=== PATIENT | male | born 1940 | race Caucasian/White ===

== ENCOUNTER 2016-07-24 14:46 | Outpatient (CLI) | payer MEDICARE, OTHER ==
[2016-05-29 12:44] VITALS: BP 155/78
--- NOTE | 2016-07-24 18:01 | Diagnostic Imaging Report ---
EARL GAN [facility] [id number] [facility] [address] [address] Report Submission Date: Jul 24, 2016 5:12:49 PM TECHNICAL PUBLICATIONS WRITER Patient Study Name: AKUA WEBB Date: Jul 24, 2016 3:24:18 PM TECHNICAL PUBLICATIONS WRITER Modality Type: CR Gender: M Description: CHEST : 36 Institution: [facility] Physician: EARL GAN Right ribs History: Right rib pain for 1 month Findings: Right shoulder arthropathy and proximal right humerus suture anchors are observed. Right ribs are unremarkable without displaced fracture or focal rib lesion. Thoracolumbar junction compression deformities and vertebroplasties are observed. A left renal stone may be present. L4/L5 fusion and posterior decompression are noted. Impression: 1. No evidence of displaced right rib fracture. 2. Possible left renal stone. 3. Multifocal postoperative changes. Electronically signed on Jul 24, 2016 5:12:49 PM TECHNICAL PUBLICATIONS WRITER by: Patricio ABRAHAM
== END 2016-07-24 14:47 ==
LOC: RAD 14:46
PROVIDERS: ATTEND Family Medicine
DX: R07.81 Pleurodynia (principal)
CPT/HCPCS: 71100

== ENCOUNTER 2016-08-15 08:07 | Outpatient (CLI) | payer MEDICARE, OTHER ==
[2016-05-29 12:44] VITALS: BP 155/78
[2016-08-15 08:59] LABS: eGFR (African) > 60; eGFR (Non-African) 52
== END 2016-08-15 08:10 ==
LOC: LAB 08:07
PROVIDERS: ATTEND Family Medicine
DX: E78.2 Mixed hyperlipidemia (principal)
CPT/HCPCS: 36415; 80053; 80061

== ENCOUNTER 2016-09-02 10:43 | Outpatient (CLI) | payer MEDICARE, OTHER ==
[2016-05-29 12:44] VITALS: BP 155/78
== END 2016-09-02 10:44 ==
LOC: CARD 10:43
PROVIDERS: ATTEND Internal Medicine Cardiovascular Disease
DX: I48.0 Paroxysmal atrial fibrillation (principal); I25.10 Atherosclerotic heart disease of native coronary artery without angina pectoris; I35.0 Nonrheumatic aortic (valve) stenosis; I10 Essential (primary) hypertension; E78.5 Hyperlipidemia, unspecified
CPT/HCPCS: G0463

== ENCOUNTER 2016-10-29 07:33 | Outpatient (CLI) | payer MEDICARE, OTHER ==
[2016-05-29 12:44] VITALS: BP 155/78
== END 2016-10-29 07:35 ==
LOC: LAB 07:33
PROVIDERS: ATTEND Family Medicine
DX: R73.9 Hyperglycemia, unspecified (principal)
CPT/HCPCS: 36415; 83036

== ENCOUNTER 2018-03-02 11:45 | Outpatient (CLI) | payer MEDICARE, OTHER ==
[2016-05-29 12:44] VITALS: BP 155/78
== END 2018-03-02 11:46 ==
LOC: CARD 11:45
PROVIDERS: ATTEND Internal Medicine Cardiovascular Disease
DX: I48.91 Unspecified atrial fibrillation (principal); I25.10 Atherosclerotic heart disease of native coronary artery without angina pectoris; I35.0 Nonrheumatic aortic (valve) stenosis; I10 Essential (primary) hypertension; E78.5 Hyperlipidemia, unspecified; G47.30 Sleep apnea, unspecified
CPT/HCPCS: G0463

== ENCOUNTER 2019-03-21 15:10 | Observation (INO) | payer MEDICARE, OTHER ==
[2016-05-29 12:44] VITALS: BP 155/78
[2019-03-21] MEDS ORDERED: ONDANSETRON HCL/PF 4 MG/ 2ML VIAL ONE (16:30)
[2019-03-21] MEDS ORDERED: NORMAL SALINE 1,000 ML IV.SOLN IV ONE (16:30)
[2019-03-31 08:31] LABS: BASOPHILS % 0.4 % (0.0-1.5); NEUTROPHILS # 9.8 # k/uL (1.4-7.7); eGFR (Non-African) 33
[2019-03-31 09:28] LABS: BASOPHILS % 0.4 % (0.0-1.5); NEUTROPHILS # 5.5 # k/uL (1.4-7.7); eGFR (Non-African) 47
[2019-03-31 10:30] LABS: BASOPHILS % 0.5 % (0.0-1.5); NEUTROPHILS # 4.1 # k/uL (1.4-7.7)
[2019-03-31 10:31] LABS: eGFR (Non-African) 55
== END 2019-03-23 10:15 | disposition home or self-care (01) ==
LOC: ED 15:10 → SOUTH 20:16
PROVIDERS: ADMIT Family Medicine; ATTEND Family Medicine
DX: E86.0 Dehydration (principal); N17.9 Acute kidney failure, unspecified; R19.7 Diarrhea, unspecified
CPT/HCPCS: 80053; 83880; 85025; 87045; 87046; 87177; 87209; 87427; 99218; 99282; 99283; G0378; J2405; J7030; S1016

== ENCOUNTER 2019-03-28 13:52 | Outpatient (CLI) | payer MEDICARE, OTHER ==
[2016-05-29 12:44] VITALS: BP 155/78
[2019-03-28 14:34] LABS: eGFR (Non-African) 54
--- NOTE | 2019-03-28 16:27 | Diagnostic Imaging Report ---
PATIENT MR#: [id number] PATIENT PATIENT NAME: AKUA WEBB DATE OF : 1940 REFERRING PHYSICIAN: Jany Modi EXAM DATE: 03/28/2019 ACCESSION NUMBER: [id number] EXAM DESCRIPTION: CT ABD PELVIS W/ CON Exam: CT abdomen pelvis with contrast. History: Abdominal pain. Axial images through the abdomen and pelvis after IV infusion of 96 cc omni scan 350 is submitted kong ng with sagittal and coronal reformatted images. Calcified granuloma in the right lower lung field is noted. The remainder of the visualized lower destin ng okee[place] are clear. No free intraperitoneal air is identified. The gallbladder is distended without intrinsic fi lling defect. The liver, spleen and pancreas appear normal in attenuation. The adrenal glands are normal configuration . The abdominal aorta is associated with atherosclerotic plaque is otherwise normal in caliber. No periaortic lympha denopathy is identified. Small stone in the lower pole of the left kidney is noted. No hydronephrosis is identified. The uri nary bladder is distended without intrinsic filling defect. The appendix is not well visualized. The small bowel is of normal caliber. Air and stool seen throu ghout the large intestine. Diverticula with some mild inflammatory changes adjacent is noted in the sigmoid colon abbott ggestive of a mild sigmoid diverticulitis. No amanda abscess formations are seen. Impression: Old granulomatous disease. Small stone in the lower pole of the left kidney without hydronephrosis. Sigmoid diverticulitis. No amanda abscess formation is identified. Read by: Dr. Alin Valdez Transcribed by: Transcribed Date: Electronically signed by: Dr. Alin Valdez Date signed: 03/28/2019 4:26:27 PM
== END 2019-03-28 13:57 ==
LOC: RAD 13:52
PROVIDERS: ATTEND Family Medicine
DX: R10.9 Unspecified abdominal pain (principal)
CPT/HCPCS: 36415; 74177; 80048; Q9967

== ENCOUNTER 2019-04-03 14:32 | Emergency (ER) | payer MEDICARE, OTHER ==
--- NOTE | 2019-04-03 14:33 | ED Physician Documentation ---
General Adult - HISTORIAN Historian: patient - HPI Stated Complaint: rash Chief Complaint: Allergic Reaction Onset: days ago (2) Timing: still present Severity: moderate Further Comments: yes (He states he started Cipro and Bactrim 3 days ago and noticed a rash starting yesterday and he has stopped meds in last 24 hours and has had little relief from OTC Meds) - ROS CONST: no problems CVS/RESP: none. denies: shortness of breath - PAST HX Past History: hypertension Immunizations: UTD Allergies/Adverse Reactions: Allergies Allergy/AdvReac Type Severity Reaction Status Date / Time cephalexin monohydrate Allergy Intermediate Hives Verified 04/03/19 15:14 [From [facility]] Home Medications: Ambulatory Orders Medication Instructions Recorded Aspirin [Ching] 81 mg PO QD 10/27/12 - SOCIAL HX Smoking History: non-smoker Alcohol Use: none Drug Use: none - FAMILY HX Family History: No - VITAL SIGNS Vital Signs: Vital Signs Temp Pulse Resp BP Pulse Ox 155/78 05/29/16 12:40 - REVIEWED ASSESSMENTS Nursing Assessment Reviewed: Yes Vitals Reviewed: Yes Progress - Progress Progress: 1545: mildly improved DG General Adult Physical Exam - PHYSICAL EXAM GENERAL APPEARANCE: no distress EENT: eye inspection normal, pharynx normal, no signs of dehydration NECK: normal inspection RESPIRATORY: no resp distress, chest non-tender, breath sounds normal CVS: reg rate & rhythm, heart sounds normal, equal pulses ABDOMEN: soft, no organomegaly, normal bowel sounds, no abdominal bruit, no distension BACK: normal inspection SKIN: other (red raised and wheal presentation on chest arms and legs ) EXTREMITIES: non-tender, normal range of motion, no evidence of injury NEURO: oriented X3 Discharge Clincal Impression: Allergic reaction caused by a drug Qualifiers: Encounter type: initial encounter Qualified Code(s): T78.40XA - Allergy, unspecified, initial encounter Referrals: Jany Modi MD [Primary Care Provider] - 2 Days Comments: 1. Prednisone 10 mg take 1 by mouth daily 2. Zantac 150 mg take 1 by mouth twice daily 3. Benadryl as directed as ordered 4. See PCP In 2 days 5. Return to ER for any increasing concerns Condition: Stable Disposition: 01 HOME, SELF-CARE Decision to Admit: NO Date of Decison to Admit: 04/03/19 Decision Time: 15:52
[2019-04-03] MEDS ORDERED: methylPREDNISolone SOD SUCC 125 MG/2 ML VIAL ONE (14:51)
[2019-04-03] MEDS ORDERED: diphenhydrAMINE HCL 50 MG/ML VIAL ONE (14:51)
[2019-04-03] MEDS ORDERED: methylPREDNISolone SOD SUCC 125 MG/2 ML VIAL IVP ONE (14:55)
[2019-04-03] MEDS ORDERED: 0.9 % SODIUM CHLORIDE 1,000 ML IV ONE (14:55)
[2019-04-03] MEDS ORDERED: diphenhydrAMINE HCL 50 MG/ML VIAL IVP ONE (14:55)
[2019-04-03] MEDS ORDERED: PANTOPRAZOLE SODIUM INJ. 40 MG VIAL ONE (15:31)
[2019-04-03] MEDS ORDERED: PANTOPRAZOLE SODIUM 40 MG in SODIUM CHLORIDE 0.9 % (FLUSH) 10 ML IVP ONE (15:32)
[2019-04-03 15:34] LABS: BASOPHILS % 0.5 % (0.0-1.5); NEUTROPHILS # 14.1 # k/uL (1.4-7.7)
[2019-04-03 15:35] LABS: SEGMENTED NEUTROPHILS % 79 % (39-79)
[2019-04-03 15:36] LABS: HYPOCHROMASIA 1+ (NEGATIVE)
[2019-04-03 16:08] VITALS: BP 110/70
== END 2019-04-03 16:07 | disposition home or self-care (01) ==
LOC: ED 14:32
DX: T78.40XA Allergy, unspecified, initial encounter (principal)
CPT/HCPCS: 36415; 80053; 85025; 96361; 96374; 96375; 99284; J1200; J2930; J7030; S1016

== ENCOUNTER 2019-04-27 15:54 | Outpatient (CLI) | payer MEDICARE, OTHER | END 2019-04-27 15:59 | LOC: LAB 15:54 | PROVIDERS: ATTEND Family Medicine | DX: R53.83 Other fatigue (principal) | CPT/HCPCS: 36415; 84443; 85027 ==